=== PATIENT | female | born 1945 | race Caucasian/White ===

== ENCOUNTER 2021-04-12 12:35 | Outpatient (REF) | payer MEDICARE, SELFPAY | END 2021-04-12 12:36 | disposition home or self-care (01) | LOC: HO.HMGCLDS 12:35 | PROVIDERS: PCP Nurse Practitioner Family; Visit Provider Internal Medicine | DX: Z20.822 Contact with and (suspected) exposure to COVID-19 (principal) | CPT/HCPCS: C9803; U0003; U0005 ==

== ENCOUNTER → 2021-05-15 09:58 | Outpatient (BNVA) | payer MEDICARE, SELFPAY | PROVIDERS: PCP Nurse Practitioner Family; Referring Provider Nurse Practitioner Family; Visit Provider Surgery | DX: L02.91 Cutaneous abscess, unspecified (principal) | CPT/HCPCS: 99202 ==

== ENCOUNTER 2022-01-07 13:28 | Outpatient (REF) | payer MEDICARE, SELFPAY ==
--- NOTE | ~2022-01-07 | XR_ITS ---
EXAMINATION: XR FINGER, RIGHT CLINICAL INFORMATION: Pain COMPARISON: None TECHNIQUE: 6 images submitted of the right thumb. FINDINGS: There is degeneration at the interphalangeal joint. There is some bony density ventrally at the interphalangeal joint which may be degenerative in nature. If there is been history of trauma avulsion cannot be excluded. There is also likely degeneration at the MCP joint and again some calcification is seen in the region along the radial aspect. This could be degenerative in nature but if there is been history of trauma avulsion cannot be excluded. Mild degenerative change at the base of the thumb. XR/XR finger RT min 2V IMPRESSION: Exam is showing evidence of degenerative changes. Some mild soft tissue calcifications are noted which could represent dystrophic calcification associated with soft tissue or ligamentous injury. There has been a a history of acute trauma a fracture cannot be excluded. Correlation recommended clinically
== END 2022-01-07 13:29 | disposition home or self-care (01) ==
LOC: HO.HMGCX 13:28
PROVIDERS: Visit Provider Nurse Practitioner Family
DX: M79.644 Pain in right finger(s) (principal)
CPT/HCPCS: 73140

== ENCOUNTER → 2022-02-09 12:35 | Outpatient (BNVA) | payer MEDICARE, SELFPAY | PROVIDERS: PCP Nurse Practitioner Family; Visit Provider Orthopaedic Surgery | DX: M65.311 Trigger thumb, right thumb (principal) | CPT/HCPCS: 99202; J1100 ==

== ENCOUNTER 2022-05-13 09:58 | Outpatient (REF) | payer MEDICARE, SELFPAY ==
--- NOTE | ~2022-05-13 | MM_ITS ---
EXAMINATION: BONE DENSITOMETRY CLINICAL INDICATION: Asymptomatic menopausal state. COMPARISON: Previous BD dated 07/27/2017 and baseline BD dated 02/09/2012. TECHNIQUE: Using a EDITD DXA System (software version: 13.1) manufactured by [employer], dual-energy x-ray absorptiometry was performed of the lumbar spine and left hip. The images are of good technical quality. Summary results are attached. FINDINGS: AP SPINE L1-L2 (excluding L3 and L4): The data of L1-L4 has been changed to exclude the L3 and L4 vertebral bodies, because degenerative changes at these levels may cause overestimation of lumbar spine density. Current: BMD 1.243 g/cm2, Z-score 2.3, T-score 0.7, normal, 5.8% decrease from previous, 3.1% increase from baseline (<5% change is not significant). Prior: BMD 1.320 g/cm2. Baseline: BMD 1.206 g/cm2. LEFT FEMUR, NECK: Current: BMD 0.854 g/cm2, Z-score 0.6, T-score -1.3, osteopenia. Prior: BMD 0.908 g/cm2. Baseline: BMD 0.919 g/cm2. LEFT FEMUR, TOTAL: Current: BMD 0.980 g/cm2, Z-score 1.5, T-score -0.2, normal, 1.3% increase from previous, 0.4% decrease from baseline (<5% change is not significant). Prior: BMD 0.967 g/cm2. Baseline: BMD 0.984 g/cm2. IDENTIFIED RISK FACTORS: Height loss, menopause. HISTORY OF FRACTURE: None listed. MEDICATIONS: Calcium supplements or multivitamin, vitamin D. MM/XR DEXA axial skeleton IMPRESSION: 1. DIAGNOSIS: Osteopenia based on the lowest T-score value of 1.3 in the femoral neck applying World Health Organization criteria. 2. 10-YEAR FRACTURE RISK PREDICTION, FRAX: Major osteoporotic fracture (clinical spine, forearm, hip or shoulder) 11.1%. Hip fracture 2.1%. 3. Treatment Recommendations: NOF guidelines recommend consideration for treatment in postmenopausal women and men age 50 and older presenting with the following: -A hip or vertebral (clinical or morphometric) fracture. -T-score less than or equal to -2.5 at the femoral neck or spine after appropriate evaluation to exclude secondary causes. -Low bone mass at the hip or spine and a 10-year fracture probability by FRAX of greater than or equal to 3% for hip fracture or greater than or equal to 20% for major osteoporotic fracture based on the [place] adapted WHO algorithm. 4. Other Recommendations: All treatment decisions require clinical judgment and consideration of individual patient factors, including patient preferences, comorbidities, previous drug use, risk factors not captured in the FRAX model (e.g. frailty, falls, vitamin D deficiency, increased bone turnover, interval significant decline in bone density) and possible under or overestimation of fracture risk by FRAX. Additional medical evaluation for secondary cause of low bone mineral density may be appropriate. FUTURE SCAN RECOMMENDATION: People with diagnosed cases of osteoporosis or at high risk for fracture should have regular bone mineral density tests. For patients eligible for Medicare, routine testing is allowed once every 2 years. The testing frequency can be increased to one year for patients who have rapidly progressing disease, those who are receiving or discontinuing medical therapy to restore bone mass, or have additional risk factors.
== END 2022-05-13 09:59 | disposition home or self-care (01) ==
LOC: HO.MAMMO 09:58
PROVIDERS: Visit Provider Nurse Practitioner Family
DX: Z13.820 Encounter for screening for osteoporosis (principal); Z78.0 Asymptomatic menopausal state
CPT/HCPCS: 77080

== ENCOUNTER 2022-09-10 11:31 | Outpatient (REF) | payer MEDICARE, SELFPAY ==
--- NOTE | ~2022-09-10 | XR_ITS ---
EXAMINATION: XR LUMBOSACRAL SPINE CLINICAL INFORMATION: Sciatica. M54.30 COMPARISON: Lumbar radiograph report 03/21/2010. MR lumbar spine report 04/01/2010. TECHNIQUE: Three views of the lumbosacral spine. FINDINGS: Normal lumbar segmentation with 5 nonrib-bearing lumbar vertebrae. There is levocurvature mid lumbar spine and mild accentuated lumbar lordosis. No vertebral compression or destructive process. There are multilevel degenerative disc changes lower thoracic spine and at L1-L2, L2 L2-L3, L3-L4. There are lesser degenerative disc changes at L4-L5. Facet degeneration is seen greatest L4-S1. There is mild retrolisthesis L2-L3 and L3-L4 and mild spondylolisthesis grade 0-1 at L4-L5. The SI joints and visualized sacrum are unremarkable. There are bulky calcifications central and left pelvis presumably related to calcified uterine fibroid. XR/XR lumbar spine 2-3V IMPRESSION: -Multilevel degenerative disc and degenerative facet changes. -Levocurvature lumbar spine with mild accentuated lumbar lordosis. -Borderline grade 0-1 retrolisthesis L2-L3 and L3-L4. -Borderline spondylolisthesis grade 0-1 at L4-L5.
== END 2022-09-10 11:32 | disposition home or self-care (01) ==
LOC: HO.HMGCX 11:31
PROVIDERS: PCP Nurse Practitioner Family; Visit Provider Nurse Practitioner Family
DX: M54.30 Sciatica, unspecified side (principal)
CPT/HCPCS: 72100

== ENCOUNTER 2023-05-20 09:59 | Outpatient (REF) | payer MEDICARE, SELFPAY ==
[2023-05-20 13:21] LABS: MANUAL DIFF FLAG NO
[2023-05-20 13:28] LABS: Basophils Absolute Auto 0.1 X10*3/uL (0.0-0.2); Basophils Percent Auto 0.8 % (0-2); Eosinophils Absolute Auto 0.1 X10*3/uL (0.0-0.4); Eosinophils Percent Auto 1.7 % (0-4); Hematocrit 39.6 % (37.0-47.0); Hemoglobin 12.7 g/dl (12.0-16.0); Imm Gran Abs Auto 0.07 X10*3/uL (0.00-0.03); Imm Gran Pct Auto 0.9 % (0.0-0.4); Lymphocytes Absolute Auto 2.6 X10*3/uL (1.2-4.9); Lymphocytes Percent Auto 33.2 % (20-40); Mean Corpuscular HGB Conc 32.1 g/dl (31.0-35.0); Mean Corpuscular Hemoglobin 29.7 pg (27.0-33.0); Mean Corpuscular Volume 92.5 fL (80.0-98.0); Mean Platelet Volume 10.4 fL (9.4-12.3); Monocytes Absolute Auto 0.7 X10*3/uL (0.1-1.2); Monocytes Percent Auto 8.9 % (2-11); Neutrophils Absolute Auto 4.3 x10*3/uL (2.0-8.3); Neutrophils Percent Auto 54.5 % (45-73); Platelet Count 287 X10*3/uL (160-400); Red Blood Count 4.28 X10*6/uL (4.20-5.50); Red Cell Distribution Width 13.2 % (11.0-16.0); White Blood Count 7.8 X10*3/uL (4.8-10.8)
[2023-05-20 14:05] LABS: Alanine Aminotransferase 17 U/L (0-31); Albumin Level 4.1 g/dL (3.5-5.0); Alkaline Phosphatase 88 U/L (39-117); Anion Gap 15 (12-20); Aspartate Amino Transferase 27 U/L (5-31); Bilirubin Total 0.6 mg/dL (0.0-1.0); Blood Urea Nitrogen 15 mg/dL (9-16); Calcium 9.6 mg/dL (8.4-10.2); Carbon Dioxide 24 mmol/L (22-29); Chloride 107 mmol/L (96-108); Cholesterol 158 mg/dL (<200); Estimated Glomerular Filt Rate 56; Glucose Fasting 97 mg/dL (60-99); HDL Cholesterol 54 mg/dL (>40); LDL Cholesterol Calculated 76 mg/dL (<100); Potassium 4.2 mmol/L (3.3-5.1); Sodium 142 mmol/L (135-145); Total Protein 7.2 g/dL (6.5-8.0); Triglycerides 141 mg/dL (<150)
[2023-05-20 14:23] LABS: TSH reflex Free T4 0.69 uIU/mL (0.32-4.0)
[2023-05-20 15:59] LABS: Appearance Urine Clear; Color Urine Yellow; Glucose Urine UA Negative (Negative); Leukocyte Esterase Urine Trace (Negative); Nitrite Urine Negative (Negative); UMIC TRIGGER UACC YES; Urine Blood Negative (Negative); Urine Ketones Negative (Negative); Urine Protein Negative (Neg-Trace)
[2023-05-20 17:09] LABS: Bacteria Urine None Seen (None Seen); Hyaline Casts Urine 0-2 /LPF (0-2); RBC Urine 0-2 /HPF (0-2); Squamous Epithelial Cell Urine 0-2 /HPF (0-2); WBC Urine 0-5 /HPF (0-5)
== END 2023-05-20 10:00 | disposition home or self-care (01) ==
LOC: HO.HMGCLDS 09:59
PROVIDERS: PCP Nurse Practitioner Family; Visit Provider Nurse Practitioner Family
DX: I10 Essential (primary) hypertension (principal)
CPT/HCPCS: 36415; 80053; 80061; 81001; 81003; 84443; 85025

== ENCOUNTER 2023-05-20 13:04 | Outpatient (AMB) | payer MEDICARE, SELFPAY ==
--- NOTE | 2023-05-20 13:06 | A.OFFPC_ITS ---
Vital Signs 05/20/23 13:07 Height 5 ft 1.5 in BMI Reason not done Patient refused/unable BP 150/78 H Blood Pressure Location Lt brachial Position Sitting Pulse 64 Pulse Source Pulse Oximeter Pulse Oximetry (%) 99 Oxygen Delivery Method Room Air Intake Visit Reasons: Annual PE Allergies penicillin V Allergy (Unknown, Verified 05/20/23 13:09) unknown doxycycline Adverse Reaction (Severe, Verified 05/20/23 13:09) Abdominal Pain, Diarrhea Dermabond Allergy (Unknown, Uncoded 05/20/23 13:09) Unknown Medication List - Last Reconciled 05/20/23 by ELICEO Logan ascorbate calcium (vitamin C) 500 mg PO DAILY [id number] 250-250-65 mg (Excedrin Migraine) 1 tab PO Q4-6H PRN atorvastatin 20 mg PO DAILY calcium carbonate-vitamin D3 600 mg-20 mcg (800 unit) (Caltrate with Vitamin D3) 1 tab PO DAILY coenzyme Q10 (H2Q CoQ10) mg PO ibuprofen (IBU-200) 200 mg PO Q6H PRN loratadine 10 mg PO DAILY losartan 50 mg PO DAILY metoprolol succinate ER 12.5 mg (1/2 x 25 mg) PO DAILY 30 days omega-3 fatty acids-fish oil 360-1,200 mg (Fish Oil) 1 cap PO DAILY Tobacco use date assessed: 05/20/23 Fall risk assessment: No Falls in past year Last assessed Fall Risk: 05/20/23 Dental Screening Dental Screen Date: 05/20/23 Did you have a dental visit in the last 12 months?: Yes Did you have a dental problem in the last 6 months where you did not have access to dental care?: No Was dental information given to patient?: Patient has dentist HPI Annual PE HPI Details here for a PE. HTN: takes at home, 1-teens/70s. pt reports she will call for her own mammogram. Cologuard , pt is hesitant, though i will send another test. bone density up to date. pt reports a cough, ? lisinopril, will stop this med, and start losartan. pt sees a chiropractor. [facility] Surgical History History of wisdom tooth extraction History of tonsillectomy History of cholecystectomy History of left breast biopsy (2016) Family History Father No problems noted. Mother History of non-Hodgkin's lymphoma Brother Lung cancer Paternal Uncle History of prostate cancer Social History Housing: Apartment Alcohol intake: never Patient Tobacco Use Status: Former Tobacco user e-Cigarette/Vaping Use: Never Used Current occupational status: retired Cognitive needs: No Hearing needs: No Vision needs: No Questionnaire Thrive Questionnaire Date Thrive assessed: 09/01/21 AUDIT C Alcohol Use Questionnaire (AUDIT-C) 1. How often do you have a drink containing alcohol?: Never Total Score: 0 Score Reviewed/Action Taken: Yes NELLY-7 AMB Questionnaire NELLY-7 Date NELLY - 7 assessed: 09/01/21 Source: Developed by Drs. Afshin Roy, Lori Elizabeth, Amado Block and colleagues, with an educational rené from [employer]. Review of Systems Const Denies chills and Denies fever(s) Eyes Denies blurry vision ENT Denies vertigo, Denies dizziness and Denies sore throat Card Denies chest pain at rest, Denies chest pain with activity, Denies diaphoresis, Denies dyspnea and Denies dyspnea on exertion Resp Denies cough, Denies dyspnea, Denies dyspnea on exertion and Denies wheezing GI Denies abdominal pain, Denies melena, Denies hematochezia, Denies constipation, Denies diarrhea and Denies loose stools Denies hematuria Musc Denies numbness and Denies tingling Skin/Breast Denies lesions Neuro Denies vertigo, Denies dizziness, Denies numbness and Denies tingling Psych Denies anxiety, Denies depression, Denies homicidal ideation, Denies suicidal ideation and Denies other (substance abuse) Aller/Immun Denies wheezing Physical exam (Primary Care) Vital Signs: Last Vital Signs Pulse 64 05/20/23 13:07 BP 150/78 H 05/20/23 13:07 Pulse Ox 99 05/20/23 13:07 Oxygen Delivery Method Room Air 05/20/23 13:07 Tobacco/Smoking Status: Tobacco use Status Tobacco use date assessed 05/20/23 05/20/23 13:13 Patient Tobacco Use Status Former Tobacco user 05/20/23 13:13 e-Cigarette/Vaping Use Never Used 05/20/23 13:13 Thrive Assessment: Date of Thrive Assessment Date Thrive assessed 09/01/21 05/20/23 13:13 Const General: cooperative Nutritional Appearance: well nourished Orientation/consciousness: patient oriented x3 HENMT Head: Yes normal to inspection, Yes normocephalic and Yes atraumatic Ears: TM normal on the right and TM normal on the left Eyes General: appearance normal, both eyes and all related structures Alignment and Position: alignment normal and position normal Neck Neck: Yes normal visual inspection and Yes no lymphadenopathy Resp Effort & Inspection: normal respiratory effort Auscultation: clear to auscultation bilaterally Cardio Rate: regular rate Rhythm: regular rhythm Heart sounds: S1 normal heart sound present, S2 normal heart sound present and no murmurs GI Palpation (GI): Soft to palpation and nontender Auscultation: normal bowel sounds Skin Rashes: no rashes Neuro General: patient oriented x3, moves all extremities, no focal motor deficits and deep tendon reflexes 2+ bilaterally Romberg Test: Negative Extrem Right lower extremity: no edema Left lower extremity: no edema Psych Affect: normal affect Attitude: cooperative Thought process: Normal thought process present Assessment and Plan Assessment & Plan (1) HTN (hypertension): Code(s): I10 - Essential (primary) hypertension Plan: switching to losartan from lisinopril due to cough (2) Physical exam: Code(s): Z00.00 - Encounter for general adult medical examination without abnormal findings Orders: Referrals Cologuard Test Z12.11 - Encounter for screening for malignant neoplasm of colon, Z12.12 - Encounter for screening for malignant neoplasm of rectum Medications: New losartan 50 mg PO DAILY 90 tabs 0RF losartan 50 mg PO DAILY 90 tabs 0RF Discontinued lisinopril Discontinued Reason: Doctor's Order 20 mg PO DAILY 90 tabs 1RF Coding Level of Care Code Est Pt Prev Care >65y(44263) Diagnoses HTN (hypertension) I10 Physical exam Z00.00
[2023-05-20 13:07] VITALS: BP 150/78; PULSE 64; O2SAT 99
== END 2023-05-20 13:52 | disposition home or self-care (01) ==
PROVIDERS: PCP Nurse Practitioner Family; Visit Provider Nurse Practitioner Family
DX: Z00.00 Encounter for general adult medical examination without abnormal findings (principal); I10 Essential (primary) hypertension
CPT/HCPCS: 99397

== ENCOUNTER 2023-10-13 09:44 | Outpatient (REF) | payer MEDICARE, SELFPAY ==
[2023-10-13 13:19] LABS: MANUAL DIFF FLAG NO
[2023-10-13 13:35] LABS: Basophils Absolute Auto 0.1 X10*3/uL (0.0-0.2); Basophils Percent Auto 0.7 % (0-2); Eosinophils Absolute Auto 0.1 X10*3/uL (0.0-0.4); Eosinophils Percent Auto 1.5 % (0-4); Hematocrit 37.6 % (37.0-47.0); Hemoglobin 12.6 g/dl (12.0-16.0); Imm Gran Abs Auto 0.03 X10*3/uL (0.00-0.03); Imm Gran Pct Auto 0.4 % (0.0-0.4); Lymphocytes Absolute Auto 2.4 X10*3/uL (1.2-4.9); Lymphocytes Percent Auto 32.3 % (20-40); Mean Corpuscular HGB Conc 33.5 g/dl (31.0-35.0); Mean Corpuscular Hemoglobin 30.4 pg (27.0-33.0); Mean Corpuscular Volume 90.8 fL (80.0-98.0); Mean Platelet Volume 9.9 fL (9.4-12.3); Monocytes Absolute Auto 0.6 X10*3/uL (0.1-1.2); Monocytes Percent Auto 8.4 % (2-11); Neutrophils Absolute Auto 4.2 x10*3/uL (2.0-8.3); Neutrophils Percent Auto 56.7 % (45-73); Platelet Count 279 X10*3/uL (160-400); Red Blood Count 4.14 X10*6/uL (4.20-5.50); White Blood Count 7.5 X10*3/uL (4.8-10.8)
[2023-10-13 14:01] LABS: Appearance Urine Clear; Color Urine Yellow; Glucose Urine UA Negative (Negative); Leukocyte Esterase Urine Negative (Negative); Nitrite Urine Negative (Negative); Specific Gravity - Urine <= 1.005 (1.005-1.025); Urine Blood Negative (Negative); Urine Ketones Negative (Negative); Urine Protein Negative (Neg-Trace)
[2023-10-13 14:14] LABS: Alanine Aminotransferase 20 U/L (0-31); Alkaline Phosphatase 93 U/L (39-117); Anion Gap 11 (12-20); Aspartate Amino Transferase 26 U/L (5-31); Bilirubin Total 0.4 mg/dL (0.0-1.0); Blood Urea Nitrogen 21 mg/dL (9-16); Calcium 9.5 mg/dL (8.4-10.2); Carbon Dioxide 27 mmol/L (22-29); Chloride 110 mmol/L (96-108); Estimated Glomerular Filt Rate > 60; Glucose Fasting 104 mg/dL (60-99); Sodium 144 mmol/L (135-145); Total Protein 6.9 g/dL (6.5-8.0)
[2023-10-13 14:21] LABS: TSH reflex Free T4 0.67 uIU/mL (0.32-4.0)
== END 2023-10-13 09:45 | disposition home or self-care (01) ==
LOC: HO.HMGCLDS 09:44
PROVIDERS: PCP Nurse Practitioner Family; Visit Provider Nurse Practitioner Family
DX: I10 Essential (primary) hypertension (principal)
CPT/HCPCS: 36415; 80053; 81003; 84443; 85025

== ENCOUNTER 2023-10-20 10:07 | Outpatient (AMB) | payer MEDICARE, SELFPAY ==
[2023-10-20 10:11] VITALS: BP 146/82; PULSE 71; O2SAT 99
--- NOTE | 2023-10-20 10:11 | A.OFFPC_ITS ---
Vital Signs 10/20/23 10:11 Height 5 ft 1.5 in BMI Reason not done Patient refused/unable BP 146/82 H Blood Pressure Location Rt brachial Position Sitting Pulse 71 Pulse Source Pulse Oximeter Pulse Oximetry (%) 99 Oxygen Delivery Method Room Air Intake Visit Reasons: 6 Month follow up Intake Note: pt is here to follow up for HTN Allergies penicillin V Allergy (Unknown, Verified 10/20/23 11:00) unknown doxycycline Adverse Reaction (Severe, Verified 10/20/23 11:00) Abdominal Pain, Diarrhea Dermabond Allergy (Unknown, Uncoded 10/20/23 11:00) Unknown Medication List - Last Reconciled 10/20/23 by ELICEO Logan ascorbate calcium (vitamin C) 500 mg PO DAILY atorvastatin 20 mg PO DAILY calcium carbonate-vitamin D3 600 mg-20 mcg (800 unit) (Caltrate with Vitamin D3) 1 tab PO DAILY coenzyme Q10 (H2Q CoQ10) mg PO ibuprofen (IBU-200) 200 mg PO Q6H PRN loratadine 10 mg PO DAILY losartan 50 mg PO DAILY metoprolol succinate ER 25 mg PO DAILY omega-3 fatty acids-fish oil 360-1,200 mg (Fish Oil) 1 cap PO DAILY zinc acetate 50 mg PO DAILY Tobacco use date assessed: 10/20/23 Fall risk assessment: No Falls in past year Last assessed Fall Risk: 10/20/23 Dental Screening Dental Screen Date: 10/20/23 Did you have a dental visit in the last 12 months?: Yes Did you have a dental problem in the last 6 months where you did not have access to dental care?: No Was dental information given to patient?: Patient has dentist HPI 6 Month follow up HPI Details HTN: Blood pressure is managed with losartan 50mg and metoprolol 12.5mg. Pt reports that her blood pressure at home has been in the 140s systolically. Will increase metoprolol from 12.5mg to 25mg. Denies chest pain, shortness of breath, headache, dizziness, and blurred vision. [facility] Surgical History History of wisdom tooth extraction History of tonsillectomy History of cholecystectomy History of left breast biopsy (2015) Family History Father No problems noted. Mother History of non-Hodgkin's lymphoma Brother Lung cancer Paternal Uncle History of prostate cancer Social History Housing: Apartment Alcohol intake: never Patient Tobacco Use Status: Former Tobacco user e-Cigarette/Vaping Use: Never Used Current occupational status: retired Cognitive needs: No Hearing needs: No Vision needs: No Questionnaire Thrive Questionnaire Date Thrive assessed: 09/01/21 NELLY-7 AMB Questionnaire NELLY-7 Date NELLY - 7 assessed: 09/01/21 Source: Developed by Drs. Afshin Roy, Lori Elizabeth, Amado Block and colleagues, with an educational rené from [employer]. Review of Systems Const Reports as per HPI Physical exam (Primary Care) Vital Signs: Last Vital Signs Pulse 71 10/20/23 10:11 BP 146/82 H 10/20/23 10:11 Pulse Ox 99 10/20/23 10:11 Oxygen Delivery Method Room Air 10/20/23 10:11 Tobacco/Smoking Status: Tobacco use Status Tobacco use date assessed 10/20/23 10/20/23 10:19 Patient Tobacco Use Status Former Tobacco user 10/20/23 10:19 e-Cigarette/Vaping Use Never Used 10/20/23 10:19 Thrive Assessment: Date of Thrive Assessment Date Thrive assessed 09/01/21 10/20/23 10:19 Const General: cooperative Orientation/consciousness: patient oriented x3 Resp Effort & Inspection: normal respiratory effort Auscultation: clear to auscultation bilaterally Cardio Rate: regular rate Rhythm: regular rhythm Heart sounds: S1 normal heart sound present and S2 normal heart sound present Neuro General: patient oriented x3 Extrem Right lower extremity: no edema Left lower extremity: no edema Psych Appearance: grossly normal Mental Status: mental status grossly normal Speech and movement: Normal speech and movement present Affect: normal affect Attitude: cooperative Thought process: Normal thought process present Thought content: Normal thought content present Insight: Good insight present (Psych) Judgement: Good judgement present (Psych) Assessment and Plan Assessment & Plan (1) HTN (hypertension): Code(s): I10 - Essential (primary) hypertension Plan: Increasing metoprolol from 12.5mg to 25mg Plan The patient agreed to the use of a medical support assistant for this encounter. Scribed for Matthew Kern, ALEENA-PAUL by Kristan Goode medical support assistant, on 10/20/2023 at 10:20 EST. Orders: Orders Comprehensive [place]. Panel Fast Today I10 - Essential (primary) hypertension TSH reflex Free T4 Today I10 - Essential (primary) hypertension UA CC w/rflx Micro + Cult Today I10 - Essential (primary) hypertension Lipid Panel Today I10 - Essential (primary) hypertension Complete Blood Count Auto Diff Today I10 - Essential (primary) hypertension Vitamin D 25-OH Total Today I10 - Essential (primary) hypertension, Z78.0 - Asymptomatic menopausal state Medications: Changed From metoprolol succinate ER 12.5 mg (1/2 x 25 mg) PO DAILY 45 tabs 1RF To metoprolol succinate ER 25 mg PO DAILY 90 tabs 1RF Coding Level of Care Code Est Pt Level 3 (21267) Diagnoses HTN (hypertension) I10
== END 2023-10-20 11:48 | disposition home or self-care (01) ==
LOC: HO.HMGC 10:07
PROVIDERS: PCP Nurse Practitioner Family; Visit Provider Nurse Practitioner Family
DX: I10 Essential (primary) hypertension (principal)
CPT/HCPCS: 99213

== ENCOUNTER 2023-12-15 11:27 | Outpatient (AMB) | payer MEDICARE, SELFPAY ==
--- NOTE | 2023-12-15 11:33 | A.OFFPC_ITS ---
Vital Signs 12/15/23 11:35 Height 5 ft 1.5 in Weight 160 lb BMI 29.7 BP 136/90 H Blood Pressure Location Rt brachial Position Sitting Pulse 65 Pulse Source Pulse Oximeter Pulse Oximetry (%) 98 Oxygen Delivery Method Room Air Intake Visit Reasons: Hypertension/new dosage/bp logs Intake Note: Patient here for HTN/ new med f/u. Allergies penicillin V Allergy (Unknown, Verified 12/15/23 11:37) unknown doxycycline Adverse Reaction (Severe, Verified 12/15/23 11:37) Abdominal Pain, Diarrhea Dermabond Allergy (Unknown, Uncoded 12/15/23 11:37) Unknown Tobacco use date assessed: 10/20/23 Fall risk assessment: No Falls in past year Last assessed Fall Risk: 12/15/23 Dental Screening Dental Screen Date: 10/20/23 HPI Hypertension/new dosage/bp logs 2 HPI Details HTN: Blood pressure is managed with metoprolol 25mg. Pt's blood pressure is elevated diastolically at home. She refuses any new meds currently. Will have pt continue to monitor her blood pressure at home and work on her diet. Denies chest pain, shortness of breath, headache, dizziness, and blurred vision. [facility] Surgical History History of wisdom tooth extraction History of tonsillectomy History of cholecystectomy History of left breast biopsy (2015) Family History Father No problems noted. Mother History of non-Hodgkin's lymphoma Brother Lung cancer Paternal Uncle History of prostate cancer Social History Housing: Apartment Alcohol intake: never Patient Tobacco Use Status: Former Tobacco user e-Cigarette/Vaping Use: Never Used Current occupational status: retired Cognitive needs: No Hearing needs: No Vision needs: No Questionnaire Thrive Questionnaire Date Thrive assessed: 09/01/21 NELLY-7 AMB Questionnaire NELLY-7 Date NELLY - 7 assessed: 09/01/21 Source: Developed by Drs. Afshin Roy, Lori Elizabeth, Amado Block and colleagues, with an educational rené from [employer]. Review of Systems Const Reports as per HPI Physical exam (Primary Care) Vital Signs: Last Vital Signs Pulse 65 12/15/23 11:35 BP 136/90 H 12/15/23 11:35 Pulse Ox 98 12/15/23 11:35 Oxygen Delivery Method Room Air 12/15/23 11:35 BMI result Body Mass Index 29.7 Tobacco/Smoking Status: Tobacco use Status Tobacco use date assessed 10/20/23 12/15/23 11:34 Patient Tobacco Use Status Former Tobacco user 12/15/23 11:34 e-Cigarette/Vaping Use Never Used 12/15/23 11:34 Thrive Assessment: Date of Thrive Assessment Date Thrive assessed 09/01/21 12/15/23 11:34 Const General: cooperative Orientation/consciousness: patient oriented x3 Resp Effort & Inspection: normal respiratory effort Auscultation: clear to auscultation bilaterally Cardio Rate: regular rate Rhythm: regular rhythm Heart sounds: S1 normal heart sound present and S2 normal heart sound present Neuro General: patient oriented x3 Extrem Right lower extremity: no edema Left lower extremity: no edema Psych Appearance: grossly normal Mental Status: mental status grossly normal Speech and movement: Normal speech and movement present Affect: normal affect Attitude: cooperative Thought process: Normal thought process present Thought content: Normal thought content present Insight: Good insight present (Psych) Judgement: Good judgement present (Psych) Assessment and Plan Assessment & Plan (1) HTN (hypertension): Code(s): I10 - Essential (primary) hypertension Plan: cont to monitor and record values Plan The patient agreed to the use of a center medical director for this encounter. Scribed for ELICEO Pittman by Kristan Goode center medical director, on 12/15/2023 at 11:45 EST. Coding Level of Care Code Est Pt Level 3 (05062) Diagnoses HTN (hypertension) I10
[2023-12-15 11:35] VITALS: BP 136/90; PULSE 65; O2SAT 98; BMI 29.7
== END 2023-12-15 12:24 | disposition home or self-care (01) ==
PROVIDERS: PCP Nurse Practitioner Family; Visit Provider Nurse Practitioner Family
DX: I10 Essential (primary) hypertension (principal)
CPT/HCPCS: 99213

== ENCOUNTER 2024-03-27 10:16 | Outpatient (AMB) | payer MEDICARE, SELFPAY ==
--- NOTE | 2024-03-27 10:24 | MHC.PC.OV ---
Vital Signs 03/27/24 10:27 Height 5 ft 1.5 in Weight 156 lb BMI 29.0 BP 132/80 Blood Pressure Location Lt brachial Position Sitting Pulse 77 Pulse Source Pulse Oximeter Pulse Oximetry (%) 97 Oxygen Delivery Method Room Air Intake Visit Reasons: 6M F/U Intake Note: Patient here for sciatica f/u. pt would also like to talk about left hand scratch from a cat that happened about 1 month ago. Allergies penicillin V Allergy (Unknown, Verified 03/27/24 10:28) unknown doxycycline Adverse Reaction (Severe, Verified 03/27/24 10:28) Abdominal Pain, Diarrhea Dermabond Allergy (Unknown, Uncoded 03/27/24 10:28) Unknown Tobacco use date assessed: 10/20/23 Fall risk assessment: No Falls in past year Last assessed Fall Risk: 03/27/24 Dental Screening Dental Screen Date: 10/20/23 HPI 6M F/U HPI Details HTN: Blood pressure is stable, managed with metoprolol 25mg. Denies chest pain, shortness of breath, headache, dizziness, and blurred vision. [facility] Surgical History History of wisdom tooth extraction History of tonsillectomy History of cholecystectomy History of left breast biopsy (2016) Family History Father No problems noted. Mother History of non-Hodgkin's lymphoma Brother Lung cancer Paternal Uncle History of prostate cancer Social History Housing: Apartment Alcohol intake: never Patient Tobacco Use Status: Former Tobacco user e-Cigarette/Vaping Use: Never Used Current occupational status: retired Cognitive needs: No Hearing needs: No Vision needs: No Questionnaire PHQ-9 Over the last 2 weeks, how often have you been bothered by any of the following problems? 1. Little interest or pleasure in doing things: not at all 2. Feeling down, depressed, or hopeless: not at all 3. Trouble falling or staying asleep, or sleeping too much: not at all 4. Feeling tired or having little energy: not at all 5. Poor appetite or overeating: not at all 6. Feeling bad about yourself - or that you are a failure or have let yourself or your family down: not at all 7. Trouble concentrating on things, such as reading the newspaper or watching television: not at all 8. Moving or speaking so slowly that other people could have noticed. Or the opposite - being so fidgety or restless that you have been moving around a lot more than usual: not at all 9. Thoughts that you would be better off or of hurting yourself in some way: not at all Total score: 0 Depression Screening Interpretation: Negative Depression Screening Done: Yes 62327 - PHQ-9 Billing: Yes Source: Developed by Drs. Afshin Roy, Lori Elizabeth, Amado Block and colleagues, with an educational rené from [employer]. Thrive Questionnaire Date Thrive assessed: 03/25/24 I am a: Patient What is your living situation today?: I have a steady place to live Within the past 12 months, did the food you bought not last and you didn't have the money to get more?: Never true Within the past 12 months, did you worry whether your food would run out before you got money to buy more?: Never true Do you have trouble paying for medicines?: No Do you have trouble getting transportation to medical appointments?: No Do you have trouble paying your heating and electricity bill?: No Do you have trouble taking care of your child, family member or friend?: I choose not to answer this question Do you have trouble with day-to-day activities such as bathing, preparing meals, shopping, managing finances, etc.?: No Are you currently unemployed and looking for a job?: Yes Are you interested in more education?: No Please select the resources that you would like help with: Housing/Longterm Currently or been in a relationship where the following occur: No concerns reported THRIVE Score: 0 AUDIT C Alcohol Use Questionnaire (AUDIT-C) 1. How often do you have a drink containing alcohol?: Never Total Score: 0 NELLY-7 AMB Questionnaire NELLY-7 Date NELLY - 7 assessed: 09/01/21 Feeling nervous, anxious, or on edge: 0 = Not at all Not being able to stop or control worryin = Not at all Worrying too much about different things: 0 = Not at all Trouble relaxin = Not at all Being so restless that it is hard to sit still: 0 = Not at all Becoming easily annoyed or irritable: 0 = Not at all Feeling afraid as if something awful might happen: 0 = Not at all Total NELLY-7 score (0-4 normal; 5-9 mild; 10-14 moderate; 15-21 severe): 0 Source: Developed by Drs. Afshin Roy, Lori Elizabeth, Amado Block and colleagues, with an educational rené from [employer]. NELLY-7 Assessment Billing NELLY-7 Assessment Tool: NELLY-7 Assessment 42079 Review of Systems Const Reports as per HPI Physical exam (Primary Care) Vital Signs: Last Vital Signs Pulse 77 03/27/24 10:27 BP 132/80 03/27/24 10:27 Pulse Ox 97 03/27/24 10:27 Oxygen Delivery Method Room Air 03/27/24 10:27 BMI result Body Mass Index 29.0 Tobacco/Smoking Status: Tobacco use Status Tobacco use date assessed 10/20/23 03/27/24 10:24 Patient Tobacco Use Status Former Tobacco user 03/27/24 10:24 e-Cigarette/Vaping Use Never Used 03/27/24 10:24 PHQ-9: PHQ-9 Score PHQ-9: Total score 0 03/27/24 11:02 Depression Screening Interpretation: Negative Thrive Assessment: Date of Thrive Assessment Date Thrive assessed 03/25/24 03/27/24 10:24 Currently or been in a relationship where the following occur: No concerns reported Const General: cooperative Orientation/consciousness: patient oriented x3 Resp Effort & Inspection: normal respiratory effort Auscultation: clear to auscultation bilaterally Cardio Rate: regular rate Rhythm: regular rhythm Heart sounds: S1 normal heart sound present and S2 normal heart sound present Neuro General: patient oriented x3 Psych Appearance: grossly normal Mental Status: mental status grossly normal Speech and movement: Normal speech and movement present Affect: normal affect Attitude: cooperative Thought process: Normal thought process present Thought content: Normal thought content present Insight: Good insight present (Psych) Judgement: Good judgement present (Psych) Assessment and Plan Assessment & Plan (1) HTN (hypertension): Code(s): I10 - Essential (primary) hypertension Plan: Stable Plan The patient agreed to the use of a medical representative for this encounter. Scribed for ALEENA Pittman- by Kristan Goode medical representative, on 03/27/2024 at 10:40 EST. Medications: Refilled metoprolol succinate ER 25 mg PO DAILY 90 tabs 1RF atorvastatin 20 mg PO DAILY 90 tabs 1RF metoprolol succinate ER 25 mg PO DAILY 90 tabs 1RF metoprolol succinate ER 25 mg PO DAILY 90 tabs 1RF Coding Level of Care Code Est Pt Level 3 (76438) Diagnoses HTN (hypertension) I10 Additional Codes NELLY-7 Assessment Billing - NELLY-7 Assessment Tool: NELLY-7 Assessment 48151 ([id number])
[2024-03-27 10:27] VITALS: BP 132/80; PULSE 77; O2SAT 97; BMI 29.0
== END 2024-03-27 11:14 | disposition home or self-care (01) ==
PROVIDERS: PCP Nurse Practitioner Family; Visit Provider Nurse Practitioner Family
DX: I10 Essential (primary) hypertension (principal)
CPT/HCPCS: 99213

== ENCOUNTER 2024-12-25 13:01 | Outpatient (AMB) | payer MEDICARE, SELFPAY ==
--- NOTE | 2024-12-25 13:04 | MHC.PC.OV ---
Vital Signs 12/25/24 13:05 Height 5 ft 1.5 in Weight 162 lb BMI 30.1 BP 136/80 Blood Pressure Location Lt brachial Position Sitting Respiration 18 Pulse 63 Pulse Source Pulse Oximeter Temp 98.2 F Temp Source Oral Pulse Oximetry (%) 97 Oxygen Delivery Method Room Air Intake Visit Reasons: 4 months follow up - HTN Intake Note: Pt is here today for 4 months follow up visit. Allergies penicillin V Allergy (Unknown, Verified 12/25/24 13:07) unknown doxycycline Adverse Reaction (Severe, Verified 12/25/24 13:07) Abdominal Pain, Diarrhea Dermabond Allergy (Unknown, Uncoded 12/25/24 13:07) Unknown Medication List - Last Reconciled 12/25/24 by ALEENA Logan-PAUL ascorbate calcium (vitamin C) 500 mg PO DAILY atorvastatin 20 mg PO DAILY calcium carbonate-vitamin D3 600 mg-20 mcg (800 unit) (Caltrate with Vitamin D3) 1 tab PO DAILY coenzyme Q10 (H2Q CoQ10) mg PO ibuprofen (IBU-200) 200 mg PO Q6H PRN loratadine 10 mg PO DAILY metoprolol succinate ER 25 mg PO DAILY omega-3 fatty acids-fish oil 360-1,200 mg (Fish Oil) 1 cap PO DAILY zinc acetate 50 mg PO DAILY Tobacco use date assessed: 12/25/24 Fall risk assessment: No Falls in past year Last assessed Fall Risk: 12/25/24 Dental Screening Dental Screen Date: 12/25/24 Did you have a dental visit in the last 12 months?: Yes Did you have a dental problem in the last 6 months where you did not have access to dental care?: No Was dental information given to patient?: Patient has dentist HPI 4 months follow up - HTN HPI Details Chief Complaint The patient presents for follow-up of hypertension. History of Present Illness The patient is a 79-year-old female presenting with a follow-up for hypertension. She has been managing her condition with medication and reports no adverse symptoms such as pain, shortness of breath, abdominal pain, blurred vision, or headaches. She has not experienced any edema. The patient indicates being well-controlled on her current medication regime without new symptoms or complications. Social History Health Maintenance Review of Systems - Cardiovascular: Denies pain, shortness of breath, and edema. - Neurological: Denies headaches, blurred vision. - Gastrointestinal: Denies abdominal pain. Physical Exam General: Cooperative, healthy appearing, comfortable, no acute distress and well developed, obese Orientation: Patient oriented x3 Limitations: No limitations Head: Normal to inspection Ears: Hearing grossly normal bilaterally Nose: Normal external nose present Face and sinus: Normal facial exam Eyes: Appearance normal, both eyes and all related structures Neck: Normal visual inspection and Yes full ROM Respiratory: Normal respiratory effort and able to speak in complete sentences. Clear to auscultation bilaterally Cardiovascular: Regular rate and rhythm. Normal S1 and S2, no carotid bruits GI: Normal to inspection. Soft to palpation and nontender Skin: No rashes or lesions noted, no edema Neuro: Patient oriented x3 Extremities: Normal to inspection Results Plan The patient's current medication regimen for essential hypertension will be continued, as it is effectively managing her condition without symptoms. Laboratory tests will be conducted to further evaluate her hypertension management. Continued cardiovascular monitoring is planned to identify any potential complications. The patient will maintain her medication routine and promptly report changes in symptoms. Discussion Notes I discussed with the patient the importance of continuing her current medication regimen for hypertension, which is controlling her condition effectively. We reviewed the plan to obtain laboratory tests to monitor her blood pressure further and ensure her condition remains stable. The potential long-term risks and benefits of controlled hypertension were discussed, and the need for vigilance in monitoring any changes in her symptoms. Follow-up appointments will be scheduled as needed based on lab results and symptom presentation. Patient Instructions - Continue taking your current medication as prescribed. - Report any new symptoms such as pain, shortness of breath, blurred vision, and headaches immediately. - Attend scheduled lab tests. - Follow up with any future appointments as needed. [facility] Surgical History History of wisdom tooth extraction History of tonsillectomy History of cholecystectomy History of left breast biopsy (2016) Family History Father No problems noted. Mother History of non-Hodgkin's lymphoma Brother Lung cancer Paternal Uncle History of prostate cancer Social History Housing: Apartment Alcohol intake: never Patient Tobacco Use Status: Former Tobacco user e-Cigarette/Vaping Use: Never Used service: No Current occupational status: retired Cognitive needs: No Hearing needs: No Vision needs: No Questionnaire PHQ-9 Over the last 2 weeks, how often have you been bothered by any of the following problems? 1. Little interest or pleasure in doing things: not at all 2. Feeling down, depressed, or hopeless: not at all 3. Trouble falling or staying asleep, or sleeping too much: not at all 4. Feeling tired or having little energy: not at all 5. Poor appetite or overeating: not at all 6. Feeling bad about yourself - or that you are a failure or have let yourself or your family down: not at all 7. Trouble concentrating on things, such as reading the newspaper or watching television: not at all 8. Moving or speaking so slowly that other people could have noticed. Or the opposite - being so fidgety or restless that you have been moving around a lot more than usual: not at all 9. Thoughts that you would be better off or of hurting yourself in some way: not at all Total score: 0 Depression Screening Interpretation: Negative Depression Screening Done: Yes 57936 - PHQ-9 Billing: Yes Source: Developed by Drs. Afshni Roy, Lori Elizabeth, Amado Block and colleagues, with an educational rené from [employer]. Thrive Questionnaire Date Thrive assessed: 12/25/24 I am a: Patient What is your living situation today?: I have a steady place to live Within the past 12 months, did the food you bought not last and you didn't have the money to get more?: Never true Within the past 12 months, did you worry whether your food would run out before you got money to buy more?: Never true Do you have trouble paying for medicines?: No Do you have trouble getting transportation to medical appointments?: No Do you have trouble paying your heating and electricity bill?: No Do you have trouble taking care of your child, family member or friend?: No Do you have trouble with day-to-day activities such as bathing, preparing meals, shopping, managing finances, etc.?: No Are you currently unemployed and looking for a job?: No Are you interested in more education?: No THRIVE Score: 0 AUDIT C Alcohol Use Questionnaire (AUDIT-C) 1. How often do you have a drink containing alcohol?: Never 3. How often do you have six or more drinks on one occasion?: Never Total Score: 0 NELLY-7 AMB Questionnaire NELLY-7 Date NELLY - 7 assessed: 12/25/24 Feeling nervous, anxious, or on edge: 0 = Not at all Not being able to stop or control worryin = Not at all Worrying too much about different things: 0 = Not at all Trouble relaxin = Not at all Being so restless that it is hard to sit still: 0 = Not at all Becoming easily annoyed or irritable: 0 = Not at all Feeling afraid as if something awful might happen: 0 = Not at all Total NELLY-7 score (0-4 normal; 5-9 mild; 10-14 moderate; 15-21 severe): 0 Source: Developed by Drs. Afshin Roy, Lori Elizabeth, Amado Block and colleagues, with an educational rené from [employer]. NELLY-7 Assessment Billing NELLY-7 Assessment Tool: NELLY-7 Assessment 55355 Physical exam (Primary Care) BMI result Body Mass Index 30.1 Tobacco/Smoking Status: Tobacco use Status Tobacco use date assessed 10/20/23 12/25/24 13:04 Patient Tobacco Use Status Former Tobacco user 12/25/24 13:04 e-Cigarette/Vaping Use Never Used 12/25/24 13:04 Depression Screening Interpretation: Negative Thrive Assessment: Date of Thrive Assessment Date Thrive assessed 12/25/24 12/25/24 13:04 Coding Level of Care Code Est Pt Level 3 (88674) Diagnoses HTN (hypertension) I10 Vitamin D deficiency E55.9 Additional Codes NELLY-7 Assessment Billing - NELLY-7 Assessment Tool: NELLY-7 Assessment 52860 ([id number]) PHQ-9 - 41927 - PHQ-9 Billing: Yes ([id number]) Assessment & Plan Assessment & Plan (1) HTN (hypertension): Code(s): I10 - Essential (primary) hypertension Category: Medical (2) Vitamin D deficiency: Code(s): E55.9 - Vitamin D deficiency, unspecified Category: Medical Plan . Orders: Orders Comprehensive [place]. Panel Fast Today I10 - Essential (primary) hypertension Lipid Panel Today I10 - Essential (primary) hypertension Complete Blood Count Auto Diff Today I10 - Essential (primary) hypertension TSH reflex Free T4 Today I10 - Essential (primary) hypertension UA CC w/rflx Micro + Cult Today I10 - Essential (primary) hypertension Vitamin D 25-OH Total Today E55.9 - Vitamin D deficiency, unspecified
[2024-12-25 13:05] VITALS: BP 136/80; PULSE 63; RESP 18; TEMP 36.8; O2SAT 97; BMI 30.1
== END 2024-12-25 13:50 | disposition home or self-care (01) ==
LOC: HO.HMCC 13:02
PROVIDERS: PCP Nurse Practitioner Family; Visit Provider Nurse Practitioner Family
DX: I10 Essential (primary) hypertension (principal); E55.9 Vitamin D deficiency, unspecified

== ENCOUNTER → 2024-12-25 13:01 | Outpatient (BNVA) | payer MEDICARE, SELFPAY | PROVIDERS: PCP Nurse Practitioner Family; Visit Provider Nurse Practitioner Family | DX: I10 Essential (primary) hypertension (principal); E55.9 Vitamin D deficiency, unspecified | CPT/HCPCS: 96127; 99212 ==

== ENCOUNTER 2025-06-21 10:02 | Outpatient (REF) | payer MEDICARE, SELFPAY ==
[2025-06-21 13:18] LABS: MANUAL DIFF FLAG NO
[2025-06-21 13:19] LABS: Appearance Urine Clear; Glucose Urine UA Negative (Negative); PH 7.0 (5.0-9.0); Specific Gravity - Urine <= 1.005 (1.005-1.025)
[2025-06-21 13:25] LABS: Hematocrit 40.4 % (37.0-47.0); Hemoglobin 13.2 g/dl (12.0-16.0); Imm Gran Abs Auto 0.02 X10*3/uL (0.00-0.03); Imm Gran Pct Auto 0.2 % (0.0-0.4); Lymphocytes Absolute Auto 1.9 X10*3/uL (1.2-4.9); Mean Corpuscular HGB Conc 32.7 g/dl (31.0-35.0); Mean Corpuscular Hemoglobin 29.5 pg (27.0-33.0); Mean Corpuscular Volume 90.4 fL (80.0-98.0); NRBC Abs Auto 0.000 X10*3/uL (0.0-0.012); NRBC Pct Auto 0.0 /100WBC (0.0-0.2); Platelet Count 303 X10*3/uL (160-400); Red Blood Count 4.47 X10*6/uL (4.20-5.50); White Blood Count 8.1 X10*3/uL (4.8-10.8)
[2025-06-21 13:57] LABS: Alanine Aminotransferase 16 U/L (0-31); Albumin Level 4.3 g/dL (3.5-5.0); Alkaline Phosphatase 110 U/L (39-117); Anion Gap 12 (12-20); Aspartate Amino Transferase 29 U/L (5-31); Blood Urea Nitrogen 18 mg/dL (9-16); Calcium 9.2 mg/dL (8.4-10.2); Carbon Dioxide 25 mmol/L (22-29); Chloride 106 mmol/L (96-108); Cholesterol 171 mg/dL (<200); Estimated Glomerular Filt Rate > 60; HDL Cholesterol 51 mg/dL (>40); Potassium 4.4 mmol/L (3.3-5.1); Sodium 139 mmol/L (135-145); Total Protein 7.1 g/dL (6.5-8.0); Triglycerides 113 mg/dL (<150)
== END 2025-06-21 10:03 | disposition home or self-care (01) ==
LOC: HO.HMGCLDS 10:02
PROVIDERS: PCP Nurse Practitioner Family; Visit Provider Nurse Practitioner Family
DX: I10 Essential (primary) hypertension (principal); E55.9 Vitamin D deficiency, unspecified
CPT/HCPCS: 36415; 80053; 80061; 81003; 82306; 84443; 85025

== ENCOUNTER 2025-06-28 12:35 | Outpatient (AMB) | payer MEDICARE, SELFPAY ==
[2025-06-28 12:40] VITALS: BP 118/80; PULSE 71; RESP 17; TEMP 36.9; O2SAT 98; BMI 29.4
--- NOTE | 2025-06-28 12:40 | MHC.PC.OV ---
Vital Signs 06/28/25 12:40 Height 5 ft 1.5 in Weight 158 lb BMI 29.4 BP 118/80 Blood Pressure Location Lt brachial Position Sitting Respiration 17 Pulse 71 Pulse Source Pulse Oximeter Temp 98.5 F Temp Source Oral Pulse Oximetry (%) 98 Oxygen Delivery Method Room Air Intake Visit Reasons: Annual PE - see comments Intake Note: Pt is here today for PE. Allergies penicillin V Allergy (Unknown, Verified 06/28/25 12:43) unknown doxycycline Adverse Reaction (Severe, Verified 06/28/25 12:43) Abdominal Pain, Diarrhea Dermabond Allergy (Unknown, Uncoded 06/28/25 12:43) Unknown Medication List - Last Reconciled 06/28/25 by ALEENA Logan-PAUL ascorbate calcium (vitamin C) 500 mg PO DAILY atorvastatin 20 mg PO DAILY calcium carbonate-vitamin D3 600 mg-20 mcg (800 unit) (Caltrate with Vitamin D3) 1 tab PO DAILY coenzyme Q10 (H2Q CoQ10) mg PO ibuprofen (IBU-200) 200 mg PO Q6H PRN loratadine 10 mg PO DAILY metoprolol succinate ER 25 mg PO DAILY omega-3 fatty acids-fish oil 360-1,200 mg (Fish Oil) 1 cap PO DAILY zinc acetate 50 mg PO DAILY Tobacco use date assessed: 06/28/25 Fall risk assessment: No Falls in past year Last assessed Fall Risk: 06/28/25 Dental Screening Dental Screen Date: 06/28/25 Did you have a dental visit in the last 12 months?: Yes Did you have a dental problem in the last 6 months where you did not have access to dental care?: No Was dental information given to patient?: Patient has dentist HPI Annual PE - see comments HPI Details History of Present Illness The patient is a 79-year-old female presenting for a physical exam. She has been observed to be very repetitive in her speech, though she is aware of it to some extent. The patient is reluctant to continue taking atorvastatin and metoprolol. she reports they cause nightmares. She described not knowing what date it is in the am recently, has to reorient herself. Her colon screening is up to date. mammo was ordered Health Maintenance The patient is due for a mammogram. Additional unspecified lab tests will be ordered. Social History Review of Systems - Cardiovascular: Denies chest pain or shortness of breath. - Gastrointestinal: Denies abdominal pain, blood in stool, constipation, and diarrhea. - Neurological: Reports repeating herself. Physical Exam General: Cooperative, healthy appearing, comfortable, no acute distress and well developed Orientation: Patient oriented x3, but repeating herself Limitations: No limitations Head: Normal to inspection Ears: Hearing grossly normal bilaterally Nose: Normal external nose present Face and sinus: Normal facial exam Eyes: Appearance normal, both eyes and all related structures Neck: Normal visual inspection and Yes full ROM Respiratory: Normal respiratory effort and able to speak in complete sentences. Clear to auscultation bilaterally Cardiovascular: Regular rate and rhythm. Normal S1 and S2 GI: Normal to inspection. Soft to palpation and nontender Skin: No rashes or lesions noted Neuro: Patient oriented x3, but repeating herself Extremities: Normal to inspection Results - Mini-Mental State Examination: 29/30. Plan 1. Hyperlipidemia The patient is reluctant to continue taking atorvastatin. She will be started on ezetimibe for cholesterol management. 2. Hypertension The patient does not want to take metoprolol. She will be started on losartan for blood pressure control. 3. Cognitive Impairment The patient is noted to be very repetitive, though a Mini-Mental State Examination score was 29/30. An MRI of the brain will be obtained, and a referral to neurology will be placed for further evaluation and treatment. The patient will be monitored closely. Discussion Notes I discussed the patient's reluctance to continue atorvastatin and metoprolol. We will switch her to ezetimibe for cholesterol and losartan for blood pressure. I also addressed my observation of her repetitive speech. Despite an impressive score of 29/30 on a Mini-Mental State Exam, I recommended further investigation. I am ordering an MRI of her brain and referring her to Neurology for a more detailed evaluation and treatment. I will also order more labs and will continue to monitor her condition closely. Patient Instructions - You can stop taking atorvastatin for cholesterol and metoprolol for blood pressure. - We will start you on a new medicine for cholesterol called ezetimibe. - We will also start you on a new medicine for blood pressure called losartan. - You are due for a mammogram, please schedule one. - We have noticed that you are repeating stories and questions, so we are going to look into this further. - We will be scheduling an MRI of your brain and an appointment with a brain specialist (neurologist). - We will also order some new blood tests. [facility] Surgical History History of wisdom tooth extraction History of tonsillectomy History of cholecystectomy History of left breast biopsy (2016) Family History Father No problems noted. Mother History of non-Hodgkin's lymphoma Brother Lung cancer Paternal Uncle History of prostate cancer Social History Housing: Apartment Alcohol intake: never Patient Tobacco Use Status: Former Tobacco user e-Cigarette/Vaping Use: Never Used service: No Current occupational status: retired Cognitive needs: No Hearing needs: No Vision needs: No Questionnaire PHQ-9 Over the last 2 weeks, how often have you been bothered by any of the following problems? 1. Little interest or pleasure in doing things: not at all 2. Feeling down, depressed, or hopeless: not at all 3. Trouble falling or staying asleep, or sleeping too much: not at all 4. Feeling tired or having little energy: not at all 5. Poor appetite or overeating: not at all 6. Feeling bad about yourself - or that you are a failure or have let yourself or your family down: not at all 7. Trouble concentrating on things, such as reading the newspaper or watching television: not at all 8. Moving or speaking so slowly that other people could have noticed. Or the opposite - being so fidgety or restless that you have been moving around a lot more than usual: not at all 9. Thoughts that you would be better off or of hurting yourself in some way: not at all Total score: 0 Depression Screening Interpretation: Negative Depression Screening Done: Yes Source: Developed by Drs. Afshin Roy, Lori Elizabeth, Amado Block and colleagues, with an educational rené from [employer]. Thrive Questionnaire Date Thrive assessed: 12/25/24 NELLY-7 AMB Questionnaire NELLY-7 Date NELLY - 7 assessed: 12/25/24 Feeling nervous, anxious, or on edge: 0 = Not at all Not being able to stop or control worryin = Not at all Worrying too much about different things: 0 = Not at all Trouble relaxin = Not at all Being so restless that it is hard to sit still: 0 = Not at all Becoming easily annoyed or irritable: 0 = Not at all Feeling afraid as if something awful might happen: 0 = Not at all Total NELLY-7 score (0-4 normal; 5-9 mild; 10-14 moderate; 15-21 severe): 0 Source: Developed by Drs. Afshin Roy, Lori Elizabeth, Amado Block and colleagues, with an educational rené from [employer]. Physical exam (Primary Care) Vital Signs: Last Vital Signs Temp 98.5 F 06/28/25 12:40 Pulse 71 06/28/25 12:40 Resp 17 06/28/25 12:40 BP 118/80 06/28/25 12:40 Pulse Ox 98 06/28/25 12:40 Oxygen Delivery Method Room Air 06/28/25 12:40 BMI result Body Mass Index 29.4 Tobacco/Smoking Status: Tobacco use Status Tobacco use date assessed 06/28/25 06/28/25 12:46 Patient Tobacco Use Status Former Tobacco user 06/28/25 12:46 e-Cigarette/Vaping Use Never Used 06/28/25 12:46 PHQ-9: PHQ-9 Score PHQ-9: Total score 0 06/28/25 12:46 Depression Screening Interpretation: Negative Thrive Assessment: Date of Thrive Assessment Date Thrive assessed 12/25/24 06/28/25 12:46 Coding Level of Care Code Est Pt Prev Care >65y(91079) Diagnoses Encounter for routine adult physical exam with abnormal findings Z00. Memory loss R41.3 Assessment & Plan Assessment & Plan (1) Encounter for routine adult physical exam with abnormal findings: Code(s): Z00.01 - Encounter for general adult medical examination with abnormal findings Category: Medical (2) Memory loss: Code(s): R41.3 - Other amnesia Category: Medical (3) Memory loss: Code(s): R41.3 - Other amnesia Category: Medical Plan , Orders: Orders MR head/brain wo con Today R41.3 - Other amnesia MM screening mammo BI Today Z12.31 - Encounter for screening mammogram for malignant neoplasm of breast Vitamin B12 and Folate Today Z00.01 - Encounter for general adult medical examination with abnormal findings Methylmalonic Acid Today R41.3 - Other amnesia Homocysteine Today R41.3 - Other amnesia Referrals Neurology Referral R41.3 - Other amnesia, Z00. - Encounter for general adult medical examination with abnormal findings Medications: New ezetimibe 10 mg PO DAILY 90 tabs 0RF losartan 25 mg PO DAILY 90 tabs 0RF 90 days Discontinued metoprolol succinate ER Discontinued Reason: Doctor's Order 25 mg PO DAILY 90 tabs 1RF atorvastatin Discontinued Reason: Doctor's Order 20 mg PO DAILY 90 tabs 1RF
== END 2025-06-28 13:36 | disposition home or self-care (01) ==
LOC: HO.HMCC 12:36
PROVIDERS: PCP Nurse Practitioner Family; Visit Provider Nurse Practitioner Family
DX: Z00.01 Encounter for general adult medical examination with abnormal findings (principal); R41.3 Other amnesia

== ENCOUNTER → 2025-06-28 12:35 | Outpatient (BNVA) | payer MEDICARE, SELFPAY | PROVIDERS: PCP Nurse Practitioner Family; Visit Provider Nurse Practitioner Family | DX: Z00.01 Encounter for general adult medical examination with abnormal findings (principal); I10 Essential (primary) hypertension; E78.5 Hyperlipidemia, unspecified; R41.3 Other amnesia; Z13.31 Encounter for screening for depression | CPT/HCPCS: 96127; 99397 ==